=== PATIENT | female | born 1960 | race Caucasian/White ===

== ENCOUNTER 2018-05-13 15:49 | Emergency (ER) | payer OTHER, MEDICAID ==
[~2018-05-13] VITALS: Ht 160 cm; Wt 59.4 kg
[~2018-05-13 15:49] MED LIST: ADVAIR 250-501 EACH INH; ALBUTEROL2.5 MG/0.5 INH; BENTYL 20 MG TA20 M1 PO; GABAPENTIN PO; HYDROCODON-ACE1 EA12 PO; HYDROXYZINE HCL50 MG PO; LEVOTHYROXIN0.075 MG PO; MULTI VITAMIN1 EACH PO; PREMARIN0.625 MG PO; REQUIP XL2 MG PO; ROBAXIN 750 MG750 M1 PO; SEROQUEL XR 30300 M1 PO; SUBOXONE 8 MG-1 EAC3 SL; VIIBRYD40 MG PO
[2018-05-13 16:12] LABS: ABSOLUTE BASOPHILS 0.1 thou/uL (0.0-0.2); ABSOLUTE EOSINOPHILS 0.2 thou/uL (0.0-0.7); ABSOLUTE MONOCYTES 0.6 thou/uL (0.0-1.2); ABSOLUTE NEUTROPHILS 4.7 thou/uL (1.6-8.1); BASOPHILS 0.7 %; EOSINOPHILS 2.9 %; HEMOGLOBIN 13.8 gm/dL (12.0-15.0); LYMPHOCYTES 26.6 %; MCH 26.9 pg (26.0-34.0); MCHC 32.9 g/dL (28.0-37.0); MCV 81.8 fL (80.0-100.0); MONOCYTES 7.7 %; MPV 7.8 fl. (7.2-11.1); NUCLEATED RBCS 0 /100WBC; PLATELET COUNT* 263 thou/uL (150-400); POLYS 62.1 %; RBC 5.13 mil/uL (4.20-5.00); RDW-CV 16.6 % (10.5-14.5); WBC 7.5 thou/uL (4.0-11.0)
[2018-05-13 16:21] LABS: ANION GAP 4 mmol/L (7-16); BUN 31 mg/dL (7-18); CALCIUM 9.6 mg/dL (8.5-10.1); CHLORIDE 104 mmol/L (98-107); CO2 31 mmol/L (21-32); CREATININE 0.9 mg/dL (0.6-1.3); GLUCOSE 98 mg/dL (70-99); POTASSIUM 4.3 mmol/L (3.5-5.1); SODIUM 139 mmol/L (136-145)
[2018-05-13 16:23] LABS: APTT 27.3 Seconds (25.0-31.3); PROTIME 10.7 Seconds (9.20-11.50)
[2018-05-13 16:38] LABS: URINE BILIRUBIN NEGATIVE (Negative); URINE BLOOD NEGATIVE (Negative); URINE CLARITY CLEAR; URINE COLOR YELLOW; URINE GLUCOSE-RANDOM NEGATIVE (Negative); URINE KETONES NEGATIVE (Negative); URINE LEUKOCYTES-REFLEX NEGATIVE (Negative); URINE NITRITE-REFLEX NEGATIVE (Negative); URINE PROTEIN NEGATIVE (Negative); URINE UROBILINOGEN 0.2 E.U./dl (0.2-1.0)
[2018-05-13 16:41] LABS: ALBUMIN 3.9 g/dL (3.4-5.0); ALKALINE PHOSPHATASE 96 U/L (46-116); CK-MB MASS 24.7 ng/mL (<0.5-3.6); NT-PRO BRAIN NAT PEPTIDE 54 pg/mL (<300); SGOT 152 U/L (15-37); SGPT 106 U/L (30-65); TOTAL BILIRUBIN 0.4 mg/dL (<0.1-1.0); TOTAL PROTEIN 7.6 g/dL (6.4-8.2); TROPONIN-I LEVEL <0.06 ng/mL (<0.06)
[2018-05-13 16:49] LABS: AMP/METHAMP Negative (Negative); BARBITURATES Negative (Negative); BENZODIAZEPINES Negative (Negative); COCAINE Negative (Negative); METHADONE Negative (Negative); OPIATES POSITIVE (Negative); PCP Negative (Negative); THC Negative (Negative)
[2018-05-13] MEDS ORDERED: NEURONTIN600 MG PO (16:53)
[2018-05-13] MEDS ORDERED: CYCLOBENZAPRINE5 MG PO (16:54)
[2018-05-13] MEDS ORDERED: BUSPIRONE HCL10 MG PO (16:55)
[2018-05-13 19:15] VITALS: BP 135/86
--- NOTE | 2018-05-14 16:13 | EKG ---
[place] [address] ELECTROCARDIOGRAM REPORT Name: DAWN DEVLIN Room: [facility]#: [id number] Admission: 05/13/18 Attend Phys: Discharge: 05/13/18 Date of : 58 Report #: [id number] THIS REPORT FOR: //name// [facility] ED Test Date: 2018-05-13 Test Time: 16:08:31 Pat Name: DAWN FIGUEROAGERI Department: Room: Gender: F Alteration Tailor: TESSA : 1960 Requested By: Yonis Urrutia Order Number: [id number] MD: Dylan Castillo Measurements Intervals [place] Rate: 83 P: 48 OK: 159 QRS: 14 QRSD: 75 T: 55 QT: 361 QTc: 425 Interpretive Statements Sinus rhythm delayed R wave progression over precordium No previous ECG available for comparison Electronically Signed On 05-14-2018 16:13:33 [employer]T [employer] by Dylan Castillo [email or web address] <ELECTRONICALLY SIGNED> By: Dylan Castillo MD, [facility] 05/14/18 1613 1608 1608 Dylan Castillo MD, FACC /EPI
== END 2018-05-13 19:19 | disposition left against medical advice (07) ==
LOC: M.ERS 15:49
PROVIDERS: Family Medicine; Nurse Practitioner Family
DX: T40.691A Poisoning by other narcotics, accidental (unintentional), initial encounter (principal); R41.82 Altered mental status, unspecified; M62.82 Rhabdomyolysis; Z91.040 Latex allergy status; Y92.89 Other specified places as the place of occurrence of the external cause

== ENCOUNTER 2020-11-30 11:07 | Emergency (ER) | payer OTHER, MEDICAID ==
[~2020-11-30] VITALS: Ht 157.5 cm; Wt 62.1 kg
[~2020-11-30 11:07] MED LIST changes: +BUSPIRONE HCL10 MG PO; +CYCLOBENZAPRINE5 MG PO; +NEURONTIN600 MG PO
[2020-11-30] MEDS ORDERED: PERCOCET 7.5-31 EAC1 PO (11:48)
[2020-11-30 14:03] VITALS: BP 146/74
== END 2020-11-30 14:03 | disposition home or self-care (01) ==
LOC: M.ERS 11:07
DX: S52.501A Unspecified fracture of the lower end of right radius, initial encounter for closed fracture (principal); S52.614A Nondisplaced fracture of right ulna styloid process, initial encounter for closed fracture; I10 Essential (primary) hypertension; Z98.890 Other specified postprocedural states; Z79.899 Other long term (current) drug therapy; W17.89XA Other fall from one level to another, initial encounter; Y93.89 Activity, other specified; Y92.89 Other specified places as the place of occurrence of the external cause; Y99.8 Other external cause status